=== PATIENT | male | born 1965 | race Two or more races ===

== ENCOUNTER 2017-12-13 08:36 | Outpatient (CLI) | payer OTHER ==
[~2017-12-13 08:36] MED LIST: HYDROCHLOROTH12.5 M1; ORPH100T PO; TORADOL60 MG IM; VASOTEC10 MG; VOLTAREM 50 MG PO; ZYRTEC10 MG PO
== END 2017-12-13 08:40 | disposition home or self-care (01) ==
LOC: RAD 08:36
DX: R07.9 Chest pain, unspecified (principal)

== ENCOUNTER 2017-12-21 09:15 | Inpatient (IN) | payer OTHER ==
[~2017-12-21] VITALS: Ht 170.2 cm; Wt 125.2 kg
[2017-12-21] MEDS ORDERED: HYDROCHLOROTHIA25 MG PO (10:19)
[2017-12-21] MEDS ORDERED: PRILOSEC OTC20 MG PO (10:20)
[2017-12-29] MEDS ORDERED: DOCUSATE SODIU100 MG PO (09:54)
[2017-12-29] MEDS ORDERED: PERCOCET 5-3251 EACH PO (09:56)
[2017-12-29] MEDS ORDERED: CLONAZEPAM1 MG PO (09:56)
== END 2017-12-29 16:13 | DRG 472 ==
LOC: PED 12-28 05:10 → O/R 12-28 05:10 → SURG 12-28 07:00 → PED 12-28 11:07
PROVIDERS: Orthopaedic Surgery Orthopaedic Surgery of the Spine
PROC: 0RG20A0 Fusion of 2 or more Cervical Vertebral Joints with Interbody Fusion Device, Anterior Approach, Anterior Column, Open Approach (ICD-10-PCS; 2017-12-28)
PROC: 0RT30ZZ Resection of Cervical Vertebral Disc, Open Approach (ICD-10-PCS; principal; 2017-12-28 07:00)
DX: M47.12 Other spondylosis with myelopathy, cervical region (principal); M50.023 Cervical disc disorder at C6-C7 level with myelopathy; I10 Essential (primary) hypertension

== ENCOUNTER 2018-02-21 09:18 | Outpatient (CLI) | payer OTHER ==
[~2018-02-21 09:18] MED LIST changes: +CLONAZEPAM1 MG PO; +DOCUSATE SODIU100 MG PO; +HYDROCHLOROTHIA25 MG PO; +PERCOCET 5-3251 EACH PO; +PRILOSEC OTC20 MG PO
== END 2018-02-21 09:22 | disposition home or self-care (01) ==
LOC: RAD 09:18
DX: M50.00 Cervical disc disorder with myelopathy, unspecified cervical region (principal); Z98.1 Arthrodesis status

== ENCOUNTER 2018-07-13 07:37 | Outpatient (CLI) | payer OTHER | END 2018-07-13 07:41 | disposition home or self-care (01) | LOC: RAD 07:37 | DX: M50.00 Cervical disc disorder with myelopathy, unspecified cervical region (principal); Z98.1 Arthrodesis status ==

== ENCOUNTER 2019-10-29 10:50 | Emergency (ER) | payer OTHER ==
[~2019-10-29] VITALS: Ht 170.2 cm; Wt 106.6 kg
[2019-10-29] MEDS ORDERED: MUCINEX DM ER1 EAC1 PO (16:56)
[2019-10-29] MEDS ORDERED: AIRBORNE EFFER1 EACH PO (16:56)
== END 2019-10-29 17:44 | disposition home or self-care (01) ==
LOC: ER 10:50
DX: J06.9 Acute upper respiratory infection, unspecified (principal)

== ENCOUNTER 2023-11-15 11:45 | Outpatient (CLI) | payer OTHER ==
[~2023-11-15 11:45] MED LIST changes: +AIRBORNE EFFER1 EACH PO; +MUCINEX DM ER1 EAC1 PO
== END 2023-11-15 11:48 | disposition home or self-care (01) ==
LOC: RAD 11:45
PROVIDERS: ATTEND Internal Medicine
DX: N30.90 Cystitis, unspecified without hematuria (principal); M54.50 Low back pain, unspecified; E55.9 Vitamin D deficiency, unspecified; E66.8 Other obesity; E66.9 Obesity, unspecified; I10 Essential (primary) hypertension

== ENCOUNTER 2024-04-19 09:41 | Outpatient (CLI) | payer OTHER | END 2024-04-19 09:51 | disposition home or self-care (01) | LOC: TOM 09:41 | PROVIDERS: ATTEND Internal Medicine | DX: N20.0 Calculus of kidney (principal); E55.9 Vitamin D deficiency, unspecified; E66.8 Other obesity; E66.9 Obesity, unspecified; I10 Essential (primary) hypertension; N30.90 Cystitis, unspecified without hematuria ==

== ENCOUNTER 2024-10-07 08:32 | Emergency (ER) | payer OTHER ==
[~2024-10-07] VITALS: Ht 170.2 cm; Wt 111.1 kg
[2024-10-07] MEDS ORDERED: HYDROCHLOROTHIA25 MG PO (09:11)
== END 2024-10-07 12:07 | disposition home or self-care (01) ==
LOC: ER 08:35
DX: R53.81 Other malaise (principal); I10 Essential (primary) hypertension